=== PATIENT | female | born 1975 | race Caucasian/White ===

== ENCOUNTER 2017-06-13 16:34 | Emergency (ER) | payer BC ==
[2017-06-13 17:10] VITALS: BP 154/90
--- NOTE | 2017-06-13 17:29 | UC ---
HPI Febrile Illness - HPI Summary HPI Summary: 42F presents with fever, nausea, headache, and cough since Tuesday. 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 She denies any abdominal pain. She denies any vomiting or diarrhea. She states her chest feels tight and that using an inhaler helps. She has been taking ibuprofen every 6 hours to try and control the fever. She states ears and throat hurt mildly. She denies any history of asthma. She has history of allergies. - History of Current Complaint Chief Complaint: UCRespiratory Time Seen by Provider: 06/13/17 17:11 Hx Last Menstrual Period: 05/24/17 - Allergy/Home Medications Allergies/Adverse Reactions: Allergies Allergy/AdvReac Type Severity Reaction Status Date / Time Naproxen [From Naprosyn] Allergy Hives Verified 06/13/17 17:02 Erythromycin AdvReac Unknown GI Upset Verified 06/13/17 17:01 Home Medications: Home Medications Dextromethorphan-Phenylephrine [Daytime Cold & Flu Relief 10-5-325 mg] 2 cap PO BID PRN 06/13/17 [History Confirmed 06/13/17] Ibuprofen [Ibuprofen 200] 400 mg PO Q6H PRN 06/13/17 [History Confirmed 06/13/17 ] guaiFENesin ER TAB [Mucinex*] 600 mg PO BID PRN 06/13/17 [History Confirmed ] PMH/Surg Hx/FS Hx/Imm Hx Endocrine History: Other Other Endocrine History: no dm Respiratory History: Other Other Respiratory History: no asthma - Surgical History Surgical History: Yes Surgery Procedure, Year, and Place: COLONOSCOPY. D&C - Family History Known Family History: Positive: Respiratory Disease - Social History Alcohol Use: Weekly Alcohol Amount: 1-2 WEEKLY Substance Use Type: None Smoking Status (MU): Never Smoked Tobacco - Immunization History Most Recent Influenza Vaccination: not this season Review of Systems Constitutional: Fever ENT: Nasal Discharge Respiratory: Shortness Of Breath, Cough All Other Systems Reviewed And Are Negative: Yes Physical Exam Triage Information Reviewed: Yes Appearance: Well-Appearing Vital Signs: Initial Vital Signs Temp 98.3 F 06/13/17 17:04 Pulse 98 06/13/17 17:04 Resp 20 06/13/17 17:04 BP 154/90 06/13/17 17:04 Pulse Ox 100 06/13/17 17:04 Vital Signs Reviewed: Yes Eyes: Positive: Conjunctiva Clear ENT: Positive: Pharynx normal, Nasal congestion, TMs normal Neck: Positive: Supple, Nontender, No Lymphadenopathy Respiratory: Positive: Lungs clear, Normal breath sounds, No respiratory distress, Other: - neg egophony Cardiovascular: Positive: RRR Abdomen Description: Positive: Nontender, Soft Bowel Sounds: Positive: Present Musculoskeletal Exam: Normal Neurological Exam: Normal Psychological Exam: Normal Course/Dx - Course Course Of Treatment: 42F presents with fever, nausea, headache, and cough since Tuesday. 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 She denies any abdominal pain. She denies any vomiting or diarrhea. She states her chest feels tight and that using an inhaler helps. She has been taking ibuprofen every 6 hours to try and control the fever. She states ears and throat hurt mildly. She denies any history of asthma. She has history of allergies. on exam lungs CTA, neg egophony. will treat with steriod, zofran, and tessalon. medication reviewed. patient has an elevated blood pressure which will have follow up with primary about. patient understand and agrees with plan. - Febrile Illness Differential Diagnoses: Pneumonia, Viremia, Other: - gastroenteritis - Diagnoses Clinic Provider Diagnoses: upper respiratory infection, elevated blood pressure Discharge - Discharge Plan Condition: Good Disposition: HOME Patient Education Materials: Upper Respiratory Infection (ED) Referrals: John Daily MD [Primary Care Provider] - Additional Instructions: Use Tessalon three times a day for cough Use inhaler one puff every 4 hours for cough as needed Take Zofran every 6 hours as needed for nausea Take steroid once a day for 5 days Use saline in the nose for nasal congestion Use humidifier or place warm bowls of water around the room for cough Take Tylenol and ibuprofen for pain/fever every 6 hours Follow up with primary within a week, you have elevated blood pressure on exam which should discuss with primary about Return to ED if develop any new or worsening symptoms
== END 2017-06-13 18:06 | disposition home or self-care (01) ==
LOC: UCCORT 16:34
DX: J06.9 Acute upper respiratory infection, unspecified (principal); R03.0 Elevated blood-pressure reading, without diagnosis of hypertension; Z88.6 Allergy status to analgesic agent; Z88.1 Allergy status to other antibiotic agents
CPT/HCPCS: 87502; 99212; G0463

== ENCOUNTER 2018-07-21 09:44 | Emergency (ER) | payer BC ==
[2018-07-21 09:55] VITALS: BP 145/93
--- NOTE | 2018-07-21 10:03 | UC ---
Lower Extremity/Ankle HPI - HPI Summary HPI Summary: 43-year-old female presents with several month history of intermittent left knee pain. Describes as a tight, sharp pain in his office associated with a feeling as if her knee is going to give out. States last night he did give out when she was ambulating causing her to fall to the ground and the pain in the left knee has been persistent since that time. She was able to ambulate immediately after the incident and here in the clinic. She is taking ibuprofen 1 dose with little relief. Denies specific injury, numbness, or tingling. - History of Current Complaint Chief Complaint: UCLowerExtremity Stated Complaint: KNEE INJURY Time Seen by Provider: 07/21/18 09:59 Hx Obtained From: Patient Hx Last Menstrual Period: 06/25/18 Pain Intensity: 6 - Allergies/Home Medications Allergies/Adverse Reactions: Allergies Allergy/AdvReac Type Severity Reaction Status Date / Time erythromycin base Allergy GI Upset Verified 07/21/18 09:50 naproxen [From Naprosyn] Allergy hive Verified 07/21/18 09:49 PMH/Surg Hx/FS Hx/Imm Hx Cardiovascular History: Hypertension - Surgical History Surgical History: Yes Surgery Procedure, Year, and Place: COLONOSCOPY. D&C - Family History Known Family History: Positive: Respiratory Disease - Social History Occupation: Employed Full-time Lives: With Family Alcohol Use: Occasionally Alcohol Amount: 1-2 WEEKLY Substance Use Type: None Smoking Status (MU): Never Smoked Tobacco - Immunization History Most Recent Influenza Vaccination: not this season Review of Systems All Other Systems Reviewed And Are Negative: Yes Skin: Negative: Bruising Respiratory: Negative: Shortness Of Breath Cardiovascular: Negative: Chest Pain Motor: Negative: Weakness Neurovascular: Negative: Decreased Sensation Musculoskeletal: Positive: Arthralgia - See HPI.. Negative: Calf Tenderness, Decreased ROM, Edema Is Patient Immunocompromised?: No Physical Exam - Summary Physical Exam Summary: GENERAL APPEARANCE: Well developed, well nourished, alert and cooperative, and appears to be in no acute distress. HEAD: Atraumatic. normocephalic. NECK: Neck supple, non-tender. CARDIAC: Normal S1 and S2. No S3, S4 or murmurs. Rhythm is regular. There is no peripheral edema, cyanosis or pallor. Extremities are warm and well perfused. Capillary refill is less than 2 seconds. LUNGS: Clear to auscultation and percussion without rales, rhonchi, wheezing or diminished breath sounds. ABDOMEN: Positive bowel sounds. Soft, nondistended, nontender. No guarding or rebound. No masses or hepatosplenomegally. MUSKULOSKELETAL: Mild tender to lateral joint line and posterior left knee. ROM intact. No joint crepitus, erythema or edema. Normal muscular development. Normal gait. Distal pulses intact. BACK: Examination of the spine reveals normal posture, no spinal deformity or tenderness, decreased range of motion or muscular spasm. NEUROLOGICAL: Strength and sensation symmetric and intact. SKIN: Skin normal color, texture and turgor with no lesions or eruptions. Vital Signs: Initial Vital Signs Temp 98.7 F 07/21/18 09:51 Pulse 110 07/21/18 09:51 Resp 20 07/21/18 09:51 BP 145/93 07/21/18 09:51 Pulse Ox 100 07/21/18 09:51 Diagnostics - Radiology No standard instances Radiology Interpretation Completed By: Radiologist Summary of Radiographic Findings: Patient Name: VENKATA SMALL Medical Record#: [id number]. Ordering Physician: Donta Bedolla NP Acct.#: [id number]. : 1975 Age: 43 Sex: F Location: [facility]. Exam Date: 07/21/18 1007 ADM Status: REG ER. Order Information: KNEE LEFT 4+ VWS. Accession Number: [id number]. CPT: 57720. HISTORY: pain. COMPARISONS: None. VIEWS: 4 , Frontal, lateral, axial, and oblique views of the left knee. FINDINGS: BONE DENSITY: Normal. BONES: There is no displaced fracture. JOINTS: There is mild patellofemoral osteophyte formation and joint space narrowing. There is a small suprapatellar joint effusion. ALIGNMENT: There is no dislocation. SOFT TISSUES: Unremarkable. OTHER FINDINGS: None. IMPRESSION: MINIMAL OSTEOARTHRITIS WITH A SMALL SUPRAPATELLAR JOINT EFFUSION. NO ACUTE OSSEOUS INJURY. IF SYMPTOMS PERSIST, RECOMMEND REPEAT IMAGING. Lower Extremity Course/Dx - Course Course Of Treatment: 43-year-old female presents with several month history of intermittent left knee pain. Describes as a tight, sharp pain in his office associated with a feeling as if her knee is going to give out. States last night he did give out when she was ambulating causing her to fall to the ground and the pain in the left knee has been persistent since that time. She was able to ambulate immediately after the incident and here in the clinic. She is taking ibuprofen 1 dose with little relief. Denies specific injury, numbness, or tingling. Afebrile. Vital signs stable. Exam reveals some mild tenderness along the lateral joint line and posterior knee. Knee stable. No crepitus or swelling. X-ray was negative for fracture dislocation. Recommend conservative treatment with NSAIDs Miryam. She was given a referral to orthopedic surgery for follow-up. Warning symptoms were reviewed with the patient. She verbalizes understanding and agrees with plan of care. - Differential Dx/Diagnosis Differential Diagnosis/HQI/PQRI: Arthritis, Contusion, Fracture (Closed), Sprain , Strain Provider Diagnosis: Acute pain of left knee Discharge - Sign-Out/Discharge Documenting (check all that apply): Patient Departure All imaging exams completed and their final reports reviewed: Yes - Discharge Plan Condition: Stable Disposition: HOME Patient Education Materials: Knee Pain (ED) Referrals: John Daily MD [Primary Care Provider] - Caio Shah MD [Medical Doctor] - 7 Days Additional Instructions: The x-ray performed in the clinic today showed some mild arthritis and a small effusion (collection of fluid) within the joint consistent with inflammation. Take ibuprofen 600 mg every 8 hours with food for next 7 days then take as needed. Rest the knee as much as possible. You may walk and bear weight but avoid strenuous activities. Apply ice for 15-20 minutes 3-4 times a day. Keep the leg elevated to help reduce swelling. Follow up with Dr. Shah, orthopedic surgery, for further evaluation. Call for an appointment. Seek immediate medical attention in the emergency room for worsening pain, swelling, fever, inability to ambulate or bear weight, development of numbness or tingling in lower leg, foot, toes, or any worsening of symptoms. - Billing Disposition and Condition Condition: STABLE Disposition: Home
== END 2018-07-21 10:50 | disposition home or self-care (01) ==
LOC: UCEAST 09:44
DX: M25.562 Pain in left knee (principal); Z88.1 Allergy status to other antibiotic agents; Z88.3 Allergy status to other anti-infective agents; I10 Essential (primary) hypertension
CPT/HCPCS: 99211; G0463